=== PATIENT | female | born 1950 | race Caucasian/White ===

== ENCOUNTER 2018-11-23 11:09 | Inpatient (IN) | payer MEDICARE, OTHER ==
[~2018-11-23] VITALS: Ht 177.8 cm; Wt 95.3 kg
[2018-11-23 11:20] VITALS: BP 91/47
[2018-11-23] MEDS ORDERED: NORCO 10-325 T1 EACH PO (11:34)
[2018-11-23] MEDS ORDERED: LASIX 20 MG TAB20 MG PO (11:34)
[2018-11-23] MEDS ORDERED: KLOR-CON 1010 MEQ PO (11:34)
[2018-11-23] MEDS ORDERED: XANAX 0.5 MG0.5 MG PO (11:35)
[2018-11-23] MEDS ORDERED: CARVEDILOL3.125 MG PO (11:36)
[2018-11-23] MEDS ORDERED: DEPAKOTE500 MG PO (11:56)
[2018-11-23 12:21] LABS: INR 1.2
[2018-11-23 13:07] LABS: HEMATOCRIT 30.9 % (37.0-47.0); HEMOGLOBIN 10.3 gm/dL (12.0-15.0); MCH 32.4 pg (26.0-34.0); MCHC 33.3 g/dL (28.0-37.0); MCV 97.4 fL (80.0-100.0); MPV 8.4 fl. (7.2-11.1); NUCLEATED RBCS 0 /100WBC; PLATELET COUNT* 322 thou/uL (150-400); RBC 3.17 mil/uL (4.20-5.00); RDW-CV 15.4 % (10.5-14.5); WBC 10.3 thou/uL (4.0-11.0)
[2018-11-23 13:15] LABS: CREATININE 2.2 mg/dL (0.6-1.3); POTASSIUM 3.8 mmol/L (3.5-5.1)
[2018-11-23 13:32] LABS: ALBUMIN 2.6 g/dL (3.4-5.0); TOTAL BILIRUBIN 0.5 mg/dL (<0.1-1.0); TOTAL PROTEIN 6.6 g/dL (6.4-8.2)
[2018-11-23 14:02] LABS: ABSOLUTE MONOCYTES 1.2 thou/uL (0.0-1.2); METAMYELOCYTES 1 %; MYELOCYTES 1 %
[2018-11-23 14:03] LABS: MACROCYTES 1+; OVALOCYTES 1+; TOXIC GRANULATION 3+
[2018-11-23 14:06] LABS: PLATELET ESTIMATE ADEQUATE
[2018-11-23 15:13] LABS: URINE POTASSIUM-RANDOM 35.1 mmol/L
[2018-11-23 15:32] LABS: INFLUENZA A ANTIGEN None Detected (None Detect); INFLUENZA B ANTIGEN None Detected (None Detect)
[2018-11-23 16:00] VITALS: BP 84/46
--- NOTE | 2018-11-23 16:32 | EKG ---
[place] [address] ELECTROCARDIOGRAM REPORT Name: ROSA WOODS Room: [address] ADM IN .R.#: [id number] Admission: 11/23/18 Attend Phys: Bill Cm MD Discharge: Date of : 50 Report #: [id number] THIS REPORT FOR: //name// [facility] ED Test Date: 2018-11-23 Test Time: 11:20:20 Pat Name: ROSA WOODS Department: Room: [facility] Gender: F Node Js Developer: Jaswinder SETH : 1950 Requested By: Cassidy Pride Order Number: [id number] MD: Vinicius Escalona Measurements Intervals [place] Rate: 69 P: 2 MI: 209 QRS: -51 QRSD: 103 T: 50 QT: 388 QTc: 416 Interpretive Statements Sinus rhythm Left axis deviation Anteroseptal infarct, age indeterminate Baseline wander in lead(s) V2 No previous ECG available for comparison Electronically Signed On 11-23-2018 16:32:20 FUEL TECHNICIAN by Vinicius Escalona [email or web address] <ELECTRONICALLY SIGNED> By: Vinicius Escalona MD, FAC 11/23/18 1632 1120 1120 Vinicius Escalona MD, LOCATED WITHIN [facility] /EPI
[2018-11-23 17:28] LABS: URINE BILIRUBIN NEGATIVE (Negative); URINE BLOOD 3+ (Negative); URINE CLARITY CLEAR; URINE COLOR YELLOW; URINE GLUCOSE-RANDOM NEGATIVE (Negative); URINE KETONES NEGATIVE (Negative); URINE LEUKOCYTES 1+ (Negative); URINE NITRITE NEGATIVE (Negative); URINE PROTEIN TRACE (Negative); URINE UROBILINOGEN 0.2 E.U./dl (0.2-1.0)
[2018-11-23 17:39] LABS: HYALINE CASTS >10 Many /LPF (None Seen)
[2018-11-23 17:40] LABS: MUCUS None Seen strn/LPF (None Seen); SQUAMOUS NONE SEEN /LPF (0-3); URINE WBC 6-15 Few /HPF (0-5)
[2018-11-23 17:41] LABS: BACTERIA 1-9 Few /HPF (None Seen); CRYSTALS None Seen /LPF (None Seen)
[2018-11-23 19:47] VITALS: BP 92/46
[2018-11-23 20:39] VITALS: BP 79/55
[2018-11-23 22:00] VITALS: BP 105/55
[2018-11-23 23:00] VITALS: BP 102/54
[2018-11-24] VITALS (30 sets, daily range): BP systolic 94–140; BP diastolic 53–78
[2018-11-24 05:15] LABS: HEMOGLOBIN 10.4 gm/dL (12.0-15.0); MCH 32.5 pg (26.0-34.0); MCHC 33.6 g/dL (28.0-37.0); MCV 96.7 fL (80.0-100.0); RBC 3.21 mil/uL (4.20-5.00); RDW-CV 15.6 % (10.5-14.5); WBC 8.2 thou/uL (4.0-11.0)
[2018-11-24 05:38] LABS: CALCIUM 8.4 mg/dL (8.5-10.1); CREATININE 1.9 mg/dL (0.6-1.3); MAGNESIUM 1.9 mg/dL (1.8-2.4); POTASSIUM 3.2 mmol/L (3.5-5.1)
[2018-11-24 13:04] LABS: SMEAR FOR EOSINOPHILS No Eosinophils Seen
[2018-11-24 13:47] LABS: URINE BILIRUBIN NEGATIVE (Negative); URINE BLOOD 3+ (Negative); URINE CLARITY CLEAR; URINE COLOR YELLOW; URINE GLUCOSE-RANDOM NEGATIVE (Negative); URINE KETONES NEGATIVE (Negative); URINE LEUKOCYTES NEGATIVE (Negative); URINE NITRITE NEGATIVE (Negative); URINE PROTEIN 3+ (Negative); URINE SPECIFIC GRAVITY >= 1.030 (1.005-1.030)
[2018-11-24 13:55] LABS: BACTERIA 1-9 Few /HPF (None Seen); COARSE GRANULAR CASTS >10 Many /LPF (None Seen); SQUAMOUS 0-3 Few /LPF (0-3); URINE RBC 0-2 Rare /HPF (0-2); URINE WBC 6-15 Few /HPF (0-5)
[2018-11-24 13:56] LABS: CRYSTALS None Seen /LPF (None Seen); FINE GRANULAR CASTS 0-3 Few /LPF (None Seen)
[2018-11-25] VITALS (28 sets, daily range): BP systolic 128–179; BP diastolic 63–94
[2018-11-25 03:48] LABS: HEMATOCRIT 31.7 % (37.0-47.0); HEMOGLOBIN 10.5 gm/dL (12.0-15.0); MCH 32.2 pg (26.0-34.0); MCHC 33.2 g/dL (28.0-37.0); MPV 7.9 fl. (7.2-11.1); RBC 3.27 mil/uL (4.20-5.00); RDW-CV 15.9 % (10.5-14.5); WBC 15.8 thou/uL (4.0-11.0)
[2018-11-25 03:55] LABS: CREATININE 1.6 mg/dL (0.6-1.3); MAGNESIUM 2.1 mg/dL (1.8-2.4); POTASSIUM 3.4 mmol/L (3.5-5.1)
--- NOTE | 2018-11-25 09:18 | CON ---
[address] [address] CONSULTATION Name: ROSA WOODS Room: [address] IN .R.#: [id number] Admission: 11/23/18 Attend Phys: Bill Cm MD Discharge: Date of : 50 Report #: [id number] THIS REPORT FOR: //name// CC: Bill Bo DATE OF SERVICE: 11/24/2018 ATTENDING PHYSICIAN: Bill Cm MD. REASON FOR NEPHROLOGY CONSULTATION: Shortness of breath, acute kidney injury. REASON FOR ADMISSION: Shortness of breath. CHIEF COMPLAINT: Shortness of breath. HISTORY OF PRESENT ILLNESS: This is a 68-year-old female who has past medical history of COPD, still uses a rebreather and has history of hypertension, anxiety, depression, bipolar disorder and back surgery, who came in with shortness of breath and cough and sputum production. Her sputum is dark green in color. She was sick around her ex- who also had a URI. She is currently having a lot of coughing. When she came in, her creatinine was 2.2 and last night, she had more hypoxia, and she had to be given a dose of Lasix, but she says getting IV fluids. She has had good urine output of 5 liters since she has been in the hospital. Her creatinine is slightly better at 1.9 today. It does look like she takes NSAID, maybe, a tablet of ibuprofen every day. Her baseline creatinine is not known. REVIEW OF SYSTEMS: Kind of limited because the patient was having a lot of coughing. It is as mentioned in history of present illness and otherwise 10-point review of systems was done and was negative. ALLERGIES: PENICILLINS. HOME MEDICATIONS: Include hydrocodone, potassium chloride, possibly ibuprofen once every day, Lasix 20 mg once a day, alprazolam, carvedilol, divalproex. PAST MEDICAL AND SURGICAL HISTORY: Includes back surgery, pneumothorax on the left, generalized anxiety disorder, depression, bipolar disorder and hypertension, not sure what medication she takes for that. FAMILY HISTORY: No history of any kidney disease in the family. SOCIAL HISTORY: She uses a vaporizer every day. She does not use recreational drugs and does not report any [place] [address] CONSULTATION Name: ROSA WOODS Room: [address]#: [id number] Admission: 11/23/18 Attend Phys: Bill Cm MD Discharge: Date of : 50 Report #: [id number] PHYSICAL EXAMINATION: VITAL SIGNS: Blood pressure is 94/53, temperature 36.6, respiration rate is 18, pulse rate is 80, and pulse ox 97% on 4 liters of oxygen via nasal cannula. GENERAL: She is in moderate distress because of coughing. Otherwise, she is oriented x 3. HEAD, EYES, EARS, NOSE AND THROAT: Mucous membranes are dry. NECK: There is no JVD. CHEST: Bilateral diminished breath sounds. No crackles. CARDIOVASCULAR: S1, S2 normal. No murmurs. ABDOMEN: Soft, nondistended, nontender. Bowel sounds are present. EXTREMITIES: No lower extremity edema, symmetrical lower extremities. NEUROLOGICAL FUNCTION: Seems to be intact. PSYCHIATRIC: Unable to assess right now. LABORATORY DATA: Hemoglobin is 10.4. INR is 1.2, potassium 3.2, sodium is 139. Creatinine is 1.9, BUN is 26 and other labs reviewed. IMAGING: Chest x-ray, renal ultrasound, other imaging studies were reviewed. ASSESSMENT: 1. Acute kidney injury, likely in the setting of volume depletion, also hypotension and the use of nonsteroidal antiinflammatory drugs and Lasix use. Baseline creatinine is not known. Creatinine was 2.2 at admission. UA did show evidence of possible urinary tract infection, 11-20 rbc's per high-powered field. 2. Renal ultrasound reviewed, shows mild bilateral hydronephrosis. 3. Hypokalemia. 4. Sepsis due to right upper lobe and middle lobe pneumonia. 5. History of bipolar disorder. 6. Anoxic encephalopathy. PLAN: 1. Antibiotics for pneumonia as per primary team. 2. Continue IV fluids, normal saline at 100 mL an hour. I do not see any need for giving diuretic treatment right now. 3. Also likely COPD exacerbation. She is on steroids. 4. Potassium will be replaced. 5. Try to find the baseline creatinine. 6. We will repeat UA and if she still has significant hematuria, we will do a serological workup. 7. Mild bilateral hydronephrosis. If creatinine continues to improve, no need for reimaging right now, but the patient can be reimaged in a couple of months. [address] [address] CONSULTATION Name: ROSA WOODS Room: [address] IN M.R.#: [id number] Admission: 11/23/18 Attend Phys: Bill Cm MD Discharge: Date of : 50 Report #: [id number] Thank you for this consultation. Avoid nephrotoxic agents, and I will continue to follow along with you. <ELECTRONICALLY SIGNED> By: Christina Cuevas MD 11/25/18 0918 0924 [id number] Cuevas MD /nt
--- NOTE | 2018-11-25 11:21 | CON ---
[address] [address] CONSULTATION Name: ROSA WOODS Lizzy Room: [address] IN .R.#: [id number] Admission: 11/23/18 Attend Phys: Bill Cm MD Discharge: Date of : 50 Report #: [id number] THIS REPORT FOR: //name// [facility] DATE OF SERVICE: 11/24/2018 INFECTIOUS DISEASE CONSULTATION ATTENDING PHYSICIAN: Bill Cm MD REASON FOR EVALUATION: Pneumonitis complicated by respiratory failure in the setting of hypotension and suspected early sepsis. HISTORY OF PRESENT ILLNESS: Chart reviewed, patient examined. This 68-year-old with a history of underlying COPD and some hypotension was admitted through the Emergency Room with progressive dyspnea. She noted onset about 48 to 72 hours prior and it had been complicated by pharyngitis, which had resolved. She noted there have been some sick family members. She has not had significant chest pain. No fevers, chills, nausea, emesis or diarrhea. History is obtained via the chart. She is quite somnolent and barely arouses. Imaging suggested possibility of a pneumonitis. She was placed on supplemental oxygen support and placed in the Intensive Care Unit. Lung scan showed no evidence of pulmonary embolus, although it did favor some pneumonitis. Cultures are pending. Empirically started on combination empiric therapy including vancomycin and cefepime. ALLERGIES: LISTED TO PENICILLINS. CURRENT MEDICATIONS: Include cefepime, multivitamin, methylprednisolone, insulin lispro sliding scale, vancomycin, guaifenesin, ipratropium and albuterol inhaler, divalproex, alprazolam, p.r.n. analgesics and antiemetics. PAST MEDICAL HISTORY: History of hypertension, anxiety disorder, bipolar depression and back surgery. SOCIAL HISTORY: Smokes e-cigarettes, no illicit drug use. No ethanol. FAMILY HISTORY: Noncontributory. REVIEW OF SYSTEMS: Not reliably obtained. PHYSICAL EXAMINATION: GENERAL: She appears chronically ill, undernourished. She is quite somnolent at this point. She is in moderate distress. She does [place] [address] CONSULTATION Name: ROSA WOODS Room: [address]#: [id number] Admission: 11/23/18 Attend Phys: Bill Cm MD Discharge: Date of : 50 Report #: [id number] HEENT: Normocephalic. She does open her eyes briefly. Extraocular muscles are intact. NECK: Supple. LUNGS: Scattered crackles. HEART: Regular. I do not appreciate a murmur. ABDOMEN: Soft and nontender. There are no peritoneal signs. EXTREMITIES: Distal lower extremities with minimal edema. GENITOURINARY: Deferred. RECTAL: Deferred. LABORATORY DATA: Most recent urinalysis 6-15 white cells and 1-9 bacteria. Urine smear for eosinophils showed none seen. Blood cultures are sterile thus far. Chest x-ray in comparison showed diffuse infiltrates, low density lesion on the right in the base. Electrolytes: Sodium 139, potassium 3.2, chloride 103, bicarbonate is 28, anion gap of 8, BUN and creatinine 26 and 1.9, glucose of 122. Prealbumin 9.1. CBC: White count of 8.2, H and H 10.4 and 31.0, platelets of 318. Hemoglobin A1c of 6. Cortisol random was 37.4. Ultrasound of the kidneys, bilateral prominent kidneys perhaps question of a mild hydronephrosis. ASSESSMENT: Pneumonitis, complicated by respiratory failure, also has fairly profound encephalopathy. At this point, we will continue empiric therapy with cefepime and vancomycin. I am not hopeful we will be able to get anything in terms of a sputum culture. Ideally as she improves her mental status will improve. Wean off support as allowed. We will monitor expectantly. Certainly at risk for nosocomial related infectious complications at this point, <ELECTRONICALLY SIGNED> By: Bryce Schilling MD 11/25/18 1121 1430 [id number] Schilling MD /nt
[2018-11-26 04:14] LABS: HEMATOCRIT 30.9 % (37.0-47.0); HEMOGLOBIN 10.3 gm/dL (12.0-15.0); MCH 32.5 pg (26.0-34.0); MCHC 33.4 g/dL (28.0-37.0); MCV 97.3 fL (80.0-100.0); MPV 7.8 fl. (7.2-11.1); RBC 3.17 mil/uL (4.20-5.00); RDW-CV 15.9 % (10.5-14.5)
[2018-11-26 04:25] LABS: CALCIUM 9.2 mg/dL (8.5-10.1); CREATININE 1.4 mg/dL (0.6-1.3); MAGNESIUM 2.1 mg/dL (1.8-2.4); POTASSIUM 4.1 mmol/L (3.5-5.1)
[2018-11-26 08:00] VITALS: BP 169/83
[2018-11-26 16:08] VITALS: BP 152/83
[2018-11-26 21:51] VITALS: BP 154/92
[2018-11-27 04:00] VITALS: BP 180/90
[2018-11-27 05:17] LABS: HEMATOCRIT 31.3 % (37.0-47.0); HEMOGLOBIN 10.5 gm/dL (12.0-15.0); MCH 32.6 pg (26.0-34.0); MCHC 33.5 g/dL (28.0-37.0); MCV 97.3 fL (80.0-100.0); MPV 7.8 fl. (7.2-11.1); RBC 3.21 mil/uL (4.20-5.00); RDW-CV 16.1 % (10.5-14.5); WBC 18.3 thou/uL (4.0-11.0)
[2018-11-27 05:20] LABS: CALCIUM 9.2 mg/dL (8.5-10.1); CREATININE 1.2 mg/dL (0.6-1.3); POTASSIUM 4.2 mmol/L (3.5-5.1)
[2018-11-27 16:03] VITALS: BP 169/78
[2018-11-27 20:00] VITALS: BP 155/80
[2018-11-28] MEDS ORDERED: PREDNISONE 10 M10 MG PO (07:46)
[2018-11-28] MEDS ORDERED: VENTOLIN HFA 1818 GM INH (07:46)
[2018-11-28] MEDS ORDERED: CEFDINIR300 MG PO (07:46)
[2018-11-28] MEDS ORDERED: AZITHROMYCIN 2250 MG PO (07:46)
[2018-11-28] MEDS ORDERED: BENZONATATE100 MG PO (07:46)
[2018-11-28] MEDS ORDERED: ACIDOPHILUS LA1 EAC1 PO (07:46)
[2018-11-28 10:49] VITALS: BP 168/88
[2018-11-28 11:00] VITALS: BP 168/88
== END 2018-11-28 13:50 | disposition home or self-care (01) | DRG 871 ==
LOC: M.ERS 11:09 → M.TBA-ER 14:36 → M.ICU 14:36 → M.ORTHSURG 11-25 23:09
PROVIDERS: Internal Medicine; Personal Emergency Response Attendant; ADMIT Internal Medicine
PROC: B548ZZA Ultrasonography of Superior Vena Cava, Guidance (ICD-10-PCS; principal; 2018-11-23)
PROC: 02HV33Z Insertion of Infusion Device into Superior Vena Cava, Percutaneous Approach (ICD-10-PCS; principal; 2018-11-23)
DX: A41.9 Sepsis, unspecified organism (principal); R65.21 Severe sepsis with septic shock; J15.9 Unspecified bacterial pneumonia; N17.0 Acute kidney failure with tubular necrosis; G92 Toxic encephalopathy; J96.90 Respiratory failure, unspecified, unspecified whether with hypoxia or hypercapnia; N13.30 Unspecified hydronephrosis; G93.1 Anoxic brain damage, not elsewhere classified; E44.0 Moderate protein-calorie malnutrition; J44.0 Chronic obstructive pulmonary disease with (acute) lower respiratory infection; I10 Essential (primary) hypertension; F41.9 Anxiety disorder, unspecified; I95.9 Hypotension, unspecified; F41.1 Generalized anxiety disorder; F31.9 Bipolar disorder, unspecified; E87.6 Hypokalemia; F17.290 Nicotine dependence, other tobacco product, uncomplicated; R73.03 Prediabetes; E86.9 Volume depletion, unspecified; G50.0 Trigeminal neuralgia; Z88.0 Allergy status to penicillin; Z82.49 Family history of ischemic heart disease and other diseases of the circulatory system; Z68.30 Body mass index [BMI] 30.0-30.9, adult; Z79.899 Other long term (current) drug therapy; I71.2 Thoracic aortic aneurysm, without rupture